=== PATIENT | male | born 2000 ===

== ENCOUNTER 2024-09-30 16:25 | Emergency (ER) | payer SELFPAY ==
[~2024-09-30] VITALS: Ht 190.5 cm; Wt 90.0 kg
[2024-09-30 21:37] VITALS: BP 128/83; PULSE 55; RESP 14; TEMP 98.3; O2SAT 100
== END 2024-09-30 22:53 | disposition home or self-care (01) ==
LOC: ER 16:26
DX: K42.9 Umbilical hernia without obstruction or gangrene (principal)
CPT/HCPCS: 99281